=== PATIENT | male | born 2000 | race African-American/Black ===

== ENCOUNTER 2023-05-20 20:18 | Emergency (ER) | payer OTHER ==
[~2023-05-20] VITALS: Ht 177.8 cm; Wt 120.0 kg
[2023-05-20 20:26] VITALS: BP 142/86; PULSE 66; RESP 16; TEMP 97.6; O2SAT 100
== END 2023-05-21 01:30 | disposition home or self-care (01) ==
LOC: ER 20:18
DX: F10.129 Alcohol abuse with intoxication, unspecified (principal)
CPT/HCPCS: 36415; 80320; 99283; G0480